=== PATIENT | male | born 1960 | race Caucasian/White ===

== ENCOUNTER → 2023-05-02 | Day surgery (SDC) | payer BC ==
[2023-04-30 11:02] VITALS: BMI 31.4
[~2023-05-02] MED LIST: LIDOCAINE 1% (10MG/ML) FOR IV START INTRADERMA PRN; PROPOFOL 10 MG/ML 20 ML VIAL IV ONE
[2023-05-02] MEDS: LACTATED RINGERS 1,000 ML IV SCH (14:11)
[2023-05-02 14:34] VITALS: RESP 16; TEMP 97.8
--- NOTE | 2023-05-02 15:16 | P.PCN ---
Date of Procedure: 05/02/23 Procedure(s) Performed: BRIEF HISTORY: Patient is a 62-year-old pleasant white male scheduled for an elective colonoscopy as a part of screening for colon cancer. PROCEDURE PERFORMED: Colonoscopy. PREOPERATIVE DIAGNOSIS: Screening for colon cancer. IV sedation per Anesthesia. PROCEDURE: After informed consent was obtained, the patient, was brought into the endoscopy unit. IV sedation was administered by Anesthesia under continuous monitoring. Digital rectal examination was normal. Initially the Olympus CF-160 flexible video colonoscope was then inserted in the rectum, gradually advanced into the cecum without any difficulty. Careful examination was performed as the scope was gradually being withdrawn. Ileocecal valve and the appendiceal orifice were visualized and appeared normal. Prep was fair.. Mucosa of the cecum, ascending colon, transverse colon, descending colon, sigmoid colon, and rectum appeared normal. Retroflexion was performed in the rectum and no lesions were seen. The patient tolerated the procedure well. IMPRESSION: Normal-appearing colon from rectum to cecum with no evidence of colorectal neoplasia . RECOMMENDATIONS: Findings of this examination were discussed with the patient as well as a family. He was advised to have a repeat screening colonoscopy in 10 years..
[2023-05-02 15:41] VITALS: BP 122/80; PULSE 79
== END ==
LOC: ORWHC2ENDO 13:03
PROVIDERS: ATTEND Internal Medicine Gastroenterology
DX: Z12.11 Encounter for screening for malignant neoplasm of colon (principal); I10 Essential (primary) hypertension; E78.5 Hyperlipidemia, unspecified; M19.90 Unspecified osteoarthritis, unspecified site; Z96.643 Presence of artificial hip joint, bilateral; Z98.890 Other specified postprocedural states; Z79.899 Other long term (current) drug therapy; Z79.82 Long term (current) use of aspirin
CPT/HCPCS: 45378; J2704